=== PATIENT | female | born 1960 | race Caucasian/White ===

== ENCOUNTER 2020-04-09 16:47 | Emergency (ER) | payer OTHER ==
[2020-04-09 16:53] VITALS: BP 118/82; PULSE 94; TEMP 98.1; BMI 23.1
[2020-04-09] MEDS ORDERED: DIPHTH,PERTUSS(ACELL),TET 0.5 ML DISP.SYRIN IM ONE ×2 (18:25→20:59)
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
== END 2020-04-09 23:03 | disposition home or self-care (01) ==
LOC: JER 16:47
PROC: 3E0234Z Introduction of Serum, Toxoid and Vaccine into Muscle, Percutaneous Approach (ICD-10-PCS; principal; 2020-04-09)
DX: S06.0X0A Concussion without loss of consciousness, initial encounter (principal); Y04.8XXA Assault by other bodily force, initial encounter
CPT/HCPCS: 70450-TC; 70486-TC; 72125-TC; 99285-25

== ENCOUNTER 2020-04-10 09:17 | Emergency (ER) | payer OTHER ==
[2020-04-10 09:34] VITALS: BP 108/70; PULSE 63; TEMP 98; BMI 22.3
[2020-04-10] MEDS ORDERED: ACETAMINOPHEN 500 MG TABLET (FP) PO ONE (09:41)
[2020-04-10] MEDS ORDERED: KETOROLAC TROMETHAMINE 30 MG/1 ML VIAL IM ONE (09:42)
[2020-04-10] MEDS ORDERED: ACETAMINOPHEN 500 MG TABLET (FP) ONE (09:45)
[2020-04-10] MEDS ORDERED: KETOROLAC TROMETHAMINE 30 MG/1 ML VIAL ONE (09:45)
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
== END 2020-04-10 12:34 | disposition home or self-care (01) ==
LOC: JER 09:17
PROC: 3E0233Z Introduction of Anti-inflammatory into Muscle, Percutaneous Approach (ICD-10-PCS; principal; 2020-04-10)
DX: S06.0X0A Concussion without loss of consciousness, initial encounter (principal)
CPT/HCPCS: 71046-TC-FY; 72128-TC; 73562-TC-LT-FY; 73562-TC-RT-FY; 99285-25

== ENCOUNTER 2021-01-25 13:02 | Emergency (ER) | payer OTHER ==
[2021-01-25 13:27] VITALS: BP 108/71; PULSE 62; TEMP 97.8; BMI 22.8
[2021-01-25 15:23] LABS: BASO % 0.8 % (0-2.0); EOS % 3.9 % (0-4.5); EPI CELLS >36 /uL (0-25.1); HEMATOCRIT 38.4 % (32.4-45.2); HEMOGLOBIN 13.6 GM/dL (10.7-15.3); HYALINE CASTS 8 /uL (0-3.1); LYMPH % 30.6 % (8-40); MCH 30.5 pg (25.7-33.7); MCHC 35.4 g/dl (32.0-36.0); MEAN PLT VOLUME 10.1 fl (7.5-11.1); MONO % 8.1 % (3.8-10.2); NEUT % 56.6 % (42.8-82.8); PH,URINE 5.5 (5.0-8.0); PLATELET COUNT 202 10^3/uL (134-434); RBC 4.47 M/mm3 (3.60-5.2); RDW 13.5 % (11.6-15.6); URINE APPEARANCE CLOUDY; URINE BACTERIA 84 /uL (0-1359); URINE BILIRUBIN NEGATIVE (NEGATIVE); URINE COLOR YELLOW; URINE GLUCOSE (UA) NEGATIVE (NEGATIVE); URINE KETONE NEGATIVE (NEGATIVE); URINE LEUK ESTERASE 2+ (NEGATIVE); URINE NITRITE NEGATIVE (NEGATIVE); URINE PROTEIN NEGATIVE (NEGATIVE); URINE RBC 13 /uL (0-23.9); URINE WBC 76 /uL (0-25.8); WHITE BLOOD COUNT 6.9 K/mm3 (4.0-10.0)
[2021-01-25 15:41] LABS: ALBUMIN 4.3 g/dl (3.4-5.0); BLOOD UREA NITROGEN 31.5 mg/dL (7-18); CALCIUM 9.1 mg/dL (8.5-10.1)
[2021-01-25 15:45] LABS: CREATININE 1.1 mg/dL (0.55-1.3)
[2021-01-25 15:46] LABS: BILIRUBIN,TOTAL 1.1 mg/dL (0.2-1); TOT PROT 7.4 g/dl (6.4-8.2)
[2021-01-25] MEDS ORDERED: POTASSIUM CHLORIDE ORAL LIQUID 20 MEQ/15 ML PO ONE (15:57)
[2021-01-25] MEDS ORDERED: POTASSIUM CHLORIDE ORAL LIQUID 20 MEQ/15 ML ONE (16:16)
== END 2021-01-25 16:22 | disposition home or self-care (01) ==
LOC: JER 13:02 → JERFT 13:02
DX: L25.9 Unspecified contact dermatitis, unspecified cause (principal); B37.9 Candidiasis, unspecified; E87.6 Hypokalemia
CPT/HCPCS: 36415; 80053; 81003; 85025; 87086; 87491; 87591; 99283-25

== ENCOUNTER 2021-02-01 12:01 | Emergency (ER) | payer OTHER ==
[2021-02-01 12:07] VITALS: BP 146/82; PULSE 90; TEMP 98.6; BMI 22.6
[2021-02-01] MEDS ORDERED: predniSONE 20 MG TABLET (UD) PO ONE (13:15)
[2021-02-01] MEDS ORDERED: diphenhydrAMINE HCL 50 MG CAPSULE PO ONE (13:15)
[2021-02-01] MEDS ORDERED: methylPREDNISolone NA SUCC 125 MG/2 ML VIAL IVPB ONE (13:32)
[2021-02-01] MEDS ORDERED: SODIUM CHLORIDE 0.9% 500 ML INFUS.BAG IV ONE (13:32)
[2021-02-01] MEDS ORDERED: methylPREDNISolone NA SUCC 125 MG/2 ML VIAL ONE (13:44)
[2021-02-01 14:50] LABS: BASO % 1.2 % (0-2.0); EOS % 1.6 % (0-4.5); HEMOGLOBIN 12.1 GM/dL (10.7-15.3); LYMPH % 29.7 % (8-40); MCH 30.3 pg (25.7-33.7); MCHC 34.6 g/dl (32.0-36.0); MEAN CELL VOLUME 87.7 fl (80-96); MEAN PLT VOLUME 10.2 fl (7.5-11.1); NEUT % 56.5 % (42.8-82.8); PLATELET COUNT 160 10^3/uL (134-434); RBC 3.99 M/mm3 (3.60-5.2); RDW 13.7 % (11.6-15.6); WHITE BLOOD COUNT 7.5 K/mm3 (4.0-10.0)
[2021-02-01 15:04] LABS: ALBUMIN 3.6 g/dl (3.4-5.0); BLOOD UREA NITROGEN 30.9 mg/dL (7-18)
[2021-02-01 15:09] LABS: BILIRUBIN,TOTAL 0.7 mg/dL (0.2-1); TOT PROT 6.6 g/dl (6.4-8.2)
== END 2021-02-01 16:25 | disposition short-term general hospital (02) ==
LOC: JER 12:01
PROC: 3E033GC Introduction of Other Therapeutic Substance into Peripheral Vein, Percutaneous Approach (ICD-10-PCS; principal; 2021-02-01)
PROC: 3E033GC Introduction of Other Therapeutic Substance into Peripheral Vein, Percutaneous Approach (ICD-10-PCS; 2021-02-01)
DX: L30.9 Dermatitis, unspecified (principal)
CPT/HCPCS: 36415; 80053; 83605; 85025; 99284-25; C9803; U0003; U0005